=== PATIENT | female | born 1945 | race African-American/Black ===

== ENCOUNTER 2017-10-03 06:19 | Emergency (ER) | payer OTHER ==
[~2017-10-03] VITALS: Ht 167.6 cm; Wt 136.7 kg
[2017-10-03] MEDS ORDERED: ASPIRIN 81MG TABLET PO STA (07:04)
[2017-10-03 10:19] LABS: CHLORIDE 108 mEq/L (98-107)
[2017-10-03 10:23] LABS: BASOPHILS % 1.1 % (0.0-2.0); EOSINOPHILS % 2.1 % (0.0-5.0); HEMATOCRIT. 32.5 % (36.0-48.0); HEMOGLOBIN. 9.9 g/dL (12.0-16.0); LYMPHOCYTES % 20.3 % (20.0-50.0); MEAN CORPUSCULAR HEMOGLOBIN 21.3 pg (28.0-32.0); MEAN CORPUSCULAR VOLUME 70.2 fL (81.0-99.0); MEAN PLATELET VOLUME 7.6 fl (7.4-10.4); MONOCYTES % 4.5 % (2.0-8.0); PLATELET 595 x1000/uL (130-400); RED BLOOD CELL COUNT 4.63 mill/uL (4.2-5.4); RED CELL DISTRIBUTION WIDTH 18.8 % (11.6-14.6)
[2017-10-03 10:24] LABS: D-DIMER 0.54 mg/L FEU (<0.50); INR 1.1; PARTIAL THROMBOPLASTIN TIME 34.8 sec (23.4-31.0); PROTHROMBIN TIME 10.9 sec (9.4-11.6)
[2017-10-03] MEDS ORDERED: IOHEXOL-350 100 ML BOTTLE ONE (13:53)
[2017-10-03 15:05] VITALS: BP 180/78
== END 2017-10-03 15:31 | disposition short-term general hospital (02) ==
LOC: ER 06:19 → CANBEDREQ 16:06
DX: R07.89 Other chest pain (principal); R06.02 Shortness of breath; R53.1 Weakness; E11.9 Type 2 diabetes mellitus without complications; I10 Essential (primary) hypertension; I44.0 Atrioventricular block, first degree; I45.10 Unspecified right bundle-branch block; E78.00 Pure hypercholesterolemia, unspecified; K76.89 Other specified diseases of liver; G35 Multiple sclerosis
CPT/HCPCS: 36415; 71045; 71275; 80053; 82962; 83880; 84484; 85025; 85379; 85610; 85730; 93005; 93970; 99285; Q9967